=== PATIENT | male | born 1970 | race Caucasian/White ===

== ENCOUNTER 2017-12-23 10:37 | Inpatient (IN) | payer OTHER ==
[2017-12-23 11:08] VITALS: BMI 35.3
--- NOTE | 2017-12-23 12:28 | HP ---
COWS - Scale Resting Pulse: 1= [place] 81-100 Sweatin=Flushed/Facial Moisture Restless Observation: 1= Difficult to Sit Still Pupil Size: 2= Moderately Dilated Bone or Joint Aches: 2= Severe Diffuse Aches (Worse r/t withdrawal) Runny Nose/ Eye Tearin= Nasal Congestion GI Upset > 30mins: 2= Nausea/Diarrhea Tremor Observation: 2= Slight Tremor Visible Yawning Observation: 0= None Anxiety or Irritability: 0= None Goose Flesh Skin: 0=Smooth Skin COWS Score: 13 Admission [facility] Chief Complaint: Here for heroin withdrawal and to enter detox. Allergies/Adverse Reactions: Allergies Allergy/AdvReac Type Severity Reaction Status Date / Time No Known Allergies Allergy Verified 12/23/17 11:04 History of Present Illness: Started using heroin about 4 months ago. Dibbed and dabbed in custodial but when got out started for and was unable to control use. Drinks about 2 beers 4 x / week. Denies other illicit substance use. Recent prescription for oxycodone for management of post (R) knee arthroscopic surgery in November. States has completed all pain medication. You have not added a ADITYA number. Keeping your ADITYA number(s) up to date on the My ADITYA Numbers page will enable the separation of your prescriptions from others ' in the search results. Others' Prescriptions Patient Name: Ismael Velarde Date: 1970 Address: [address] [place] [address] Sex: Male Rx Written Rx Dispensed Drug Quantity Days Supply Prescriber Name 11/18/2017 11/19/2017 oxycodone-acetaminophen 5-325 mg tab 40 5 Chaka Maynard MD Patient Name: Ismael Velarde Date: 1970 Address: [address] [place] [address] Sex: Male Rx Written Rx Dispensed Drug Quantity Days Supply Prescriber Name 06/21/2017 06/21/2017 tramadol hcl 50 mg tablet 20 5 Scott Julio V () 03/25/2017 04/20/2017 dextroamp-amphet er 5 mg cap 30 30 Dahiana Momin MD 03/06/2017 03/21/2017 dextroamp-amphet er 5 mg cap 30 30 Dahiana Momin MD 02/07/2017 02/11/2017 dextroamp-amphet er 5 mg cap 30 30 Dahiana Momin MD Hx. asthma. last exacerbation in summer 1 year ago. Denies other significant health problems. States here to stop heroin use before it becomes a bigger problem. Discussed ther relationship of prescription opiates and need to discuss heroin use disorder with primary care providers to avoid relapse and overdose risk post hospitalization. - Ebola screening Have you traveled outside of the country in the last 21 days: No Have you had contact with anyone from an Ebola affected area: No Have you been sick,other than usual withdrawal symptoms: No Do you have a fever: No - Review of Systems EENT: reports: Blurred Vision (Wears glasses), Nose Congestion (r/t withdrawal) Respiratory: reports: Other (hx. asthma. No recent exacerbation. Uses albuterol for wheezing) Cardiac: reports: No Symptoms Reported GI: reports: Nausea, Indigestion (Hx. acid reflux. Was taking omeprazole. Now using TUMS.) : reports: No Symptoms Reported Musculoskeletal: reports: Joint Pain (Hx. (L) knee pain - 1 month post arthroscopic surgery. Pain is achy and a "3" at this time. Uses a cane for support.) Integumentary: reports: No Symptoms Reported Neuro: reports: Tremors, Unsteady Gait (r/t (L) knee problems) Endocrine: reports: No Symptoms Reported Hematology: reports: No Symptoms Reported Psychiatric: reports: Agitated (r/t withdrawal), Anxious (r/t withdrawal), Depressed (Denies suicide or violent ideation.), other (States hx. bipolar disorder. No medication treatment) Patient History - Patient Medical History Hx Asthma: Yes (ON ALBUTEROL PUMP) Hx Chronic Obstructive Pulmonary Disease (COPD): No Hx Cancer: No Hx Cardiac Disorders: No Hx Congestive Heart Failure: No Hx Hypertension: No Hx Hypercholesterolemia: No Hx Pacemaker: No HX Cerebrovascular Accident: No Hx Seizures: No Hx Dementia: No Hx Diabetes: No Hx Gastrointestinal Disorders: No Hx Liver Disease: No Hx Genitourinary Disorders: No Hx Sexually Transmitted Disorders: No Hx Renal Disease (ESRD): No Hx Thyroid Disease: No Hx Human Immunodeficiency Virus (HIV): No (Last tested 3 months ago. ) Hx Hepatitis C: No Hx Depression: Yes (States r/t incarceration. Denies suicide or violent ideation. ) Hx Suicide Attempt: No Hx Bipolar Disorder: Yes (States diagnosed but not on medications. ) Hx Schizophrenia: No - Patient Surgical History Past Surgical History: Yes Hx Neurologic Surgery: No Hx Cataract Extraction: No Hx Cardiac Surgery: No Hx Lung Surgery: No Hx Breast Surgery: No Hx Breast Biopsy: No Hx Abdominal Surgery: No Hx Appendectomy: No Hx Cholecystectomy: No Hx Genitourinary Surgery: No Hx Section: No Hx Orthopedic Surgery: Yes (LEFT KNEE Arthroscopy NOVEMBER 2017) Anesthesia Reaction: No - PPD History Previous Implant?: Yes Documented Results: Negative w/o proof Implanted On Prior [facility] Admission?: No PPD to be Administered?: Yes - Smoking Cessation Smoking history: Former smoker Have you smoked in the past 12 months: No Hx Chewing Tobacco Use: No Initiated information on smoking cessation: No - Substance & Tx. History Hx Alcohol Use: No Hx Substance Use: Yes Substance Use Type: Heroin Hx Substance Use Treatment: No - Substances Abused Heroin Route: Inhalation Frequency: Daily Amount used: 4 BAGS DAILY Age of first use: 47 Date of Last Use: 12/23/17 (7 am ) Admission Physical Exam S - Vital Signs Vital Signs: Vital Signs - 24 hr 12/23/17 11:05 Temperature 97.9 F Pulse Rate 87 Respiratory 20 Rate Blood Pressure 110/75 - Physical General Appearance: Yes: Mild Distress, Tremorous, Irritable, Sweating, Anxious HEENTM: Yes: EOMI, Hearing grossly Normal, Normal Voice, NIKKY Respiratory: Yes: Chest Non-Tender, Lungs Clear, Normal Breath Sounds, No Respiratory Distress Neck: Yes: No masses,lesions,Nodules, Supple Breast: Yes: Breast Exam Deferred Cardiology: Yes: Regular Rhythm, Regular Rate, S1, S2 Abdominal: Yes: Non Tender, Soft, Increased Bowel Sounds Genitourinary: Yes: Within Normal Limits Back: Yes: Normal Inspection Musculoskeletal: Yes: Joint swelling ((L) lnee with mild swelling. FROM. Two 1cm incision lines (L) knee dry and approximated.) Extremities: Yes: Normal Capillary Refill, Normal Range of Motion, Non-Tender, Tremors (Upon arm extension), Pedal Edema (Mild edema (R) foot. Cap refill < 3 seconds. Pedal pulses (+)) Neurological: Yes: shelter monitor II-XII NML intact, Alert, Motor Strength 5/5 Integumentary: Yes: Normal Color, Warm Lymphatic: Yes: Within Normal Limits - Diagnostic (1) Opiate withdrawal Current Visit: Yes Status: Acute (2) H/O arthroscopy of left knee Current Visit: Yes Status: Chronic (3) Depression Current Visit: Yes Status: Chronic Qualifiers: Depression Type: unspecified Qualified Code(s): F32.9 - Major depressive disorder, single episode, unspecified Cleared for Admission [facility] - Detox or Rehab [facility] Level of Care: Medically Managed Detox Regimen/Protocol: Methadone [facility] Breath Alcohol Content Breath Alcohol Content: 0 Urine Drug Screen - Results Drug Screen Negative: No Urine Drug Screen Results: OPI-Opiates, OXY-Oxycodone
[2017-12-23] MEDS ORDERED: guaiFENesin/D-METHORPHAN HB 10 ML UNIT-DOSE CUPS PO PRN (12:57)
[2017-12-23] MEDS ORDERED: MAG HYDROX/AL HYDROX/SIMETH 30 ML UNIT-DOSE CUP PO PRN (12:57)
[2017-12-23] MEDS ORDERED: ACETAMINOPHEN 325 MG TABLET (FP) PO PRN (12:57)
[2017-12-23] MEDS ORDERED: MAGNESIUM CITRATE 300 ML BOTTLE PO PRN (12:57)
[2017-12-23] MEDS ORDERED: LOPERAMIDE HCL 2 MG CAPSULE PO PRN (12:57)
[2017-12-23] MEDS ORDERED: hydrOXYzine PAMOATE 50 MG CAPSULE (FP) PO PRN (12:57)
[2017-12-23] MEDS ORDERED: MAGNESIUM HYDROX 2400MG/30ML ORAL SUSPENSION 30 ML CUP PO PRN (12:57)
[2017-12-23] MEDS ORDERED: MENTHOL/PHENOL 1 EACH UD MM PRN (12:57)
[2017-12-23] MEDS ORDERED: P-EPHED 60MG/TRIPROLIDI 2.5MG TABLET PO PRN (12:57)
[2017-12-23] MEDS ORDERED: METHADONE HCL 10 MG TABLET (FOR DETOX USE ONLY) PO ONE ×2 (14:15→23:00)
[2017-12-23] MEDS: diazePAM 5 MG TABLET PO PRN ×2 (15:06→22:20)
--- NOTE | 2017-12-23 15:44 | CONSULT ---
[facility] Psychiatric Consult - Data Date of interview: 12/23/17 Admission source: [facility] Identifying data: This is 47 years old male, single father of one, living with family, service parts coordinator working, ambulates with cane, with no psychiatric hospitalization history, reports Opioid dependence and seeking for detox. Substance Abuse History: - Smoking Cessation. Smoking history: Former smoker. Have you smoked in the past 12 months: No. Hx Chewing Tobacco Use: No. Initiated information on smoking cessation: No. - Substance & Tx. History. Hx Alcohol Use: No. Hx Substance Use: Yes. Substance Use Type: Heroin. Hx Substance Use Treatment: No. - Substances Abused. Heroin. Route: Inhalation. Frequency: Daily. Amount used: 4 BAGS DAILY. Age of first use: 47. Date of Last Use: 12/23/17 (7 am ) Medical History: Left Knee Injury, ambulates with cane Psychiatric History: Patient denies past psychiatric history Physical/Sexual Abuse/Trauma History: Denies Additional Comment: Observation. Detox Unit Care. Mental Status Exam - Mental Status Exam Alert and Oriented to: Person Cognitive Function: Fair Patient Appearance: Unkempt Mood: Anxious Affect: Mood Congruent Patient Behavior: Cooperative Speech Pattern: Delayed Voice Loudness: Mildly Soft/Quiet Thought Process: Circumstantial, Goal Oriented Thought Disorder: Being Controlled Hallucinations: Denies Suicidal Ideation: Denies Homicidal Ideation: Denies Insight/Judgement: Fair Sleep: Difficulty falling asleep Muscle strength/Tone: Mild Hypotonicity Additional Comments: Observation. Detox Unit Care. Psychiatric Findings - Problem List ([place] 1, 2,3) (1) Opioid-induced mood disorder Current Visit: Yes Status: Acute (2) Opiate withdrawal Current Visit: Yes Status: Acute - Initial Treatment Plan Initial Treatment Plan: Observation. Detox Unit Care.
[2017-12-23 17:52] LABS: URINE APPEARANCE TURBID; URINE BILIRUBIN NEGATIVE (<2.0 mg/dL); URINE COLOR AMBER; URINE GLUCOSE (UA) NEGATIVE (NEGATIVE); URINE KETONE NEGATIVE (NEGATIVE); URINE LEUK ESTERASE NEGATIVE (NEGATIVE); URINE NITRITE NEGATIVE (NEGATIVE); URINE PROTEIN NEGATIVE (NEGATIVE)
[2017-12-23] MEDS ORDERED: MELATONIN 5 MG TABLETS PO PRN (22:00)
[2017-12-23] MEDS: THIAMINE HCL 100 MG TABLET (FP) PO SCH (22:20)
[2017-12-24] MEDS ORDERED: METHADONE HCL 10 MG TABLET (FOR DETOX USE ONLY) PO ONE (10:00)
[2017-12-24 10:10] LABS: MCH 30.7 pg (25.7-33.7); MCHC 34.2 g/dl (32.0-35.9); MEAN PLT VOLUME 9.9 fl (7.5-11.1); PLATELET COUNT 183 K/MM3 (134-434); RBC 4.56 M/mm3 (4.00-5.60); RDW 13.2 % (11.9-15.9)
[2017-12-24 10:17] LABS: CHLORIDE 102 mmol/L (98-107); POTASSIUM 4.4 mmol/L (3.5-5.1); SODIUM 140 mmol/L (136-145)
[2017-12-24] MEDS: PRENATAL VITAMINS W/ FOLIC ACID TABLET (FP) PO SCH (10:24)
[2017-12-24] MEDS: diazePAM 5 MG TABLET PO PRN ×2 (10:25→22:14)
--- NOTE | 2017-12-24 10:38 | PN ---
[facility] COWS - Scale Resting Pulse: 1= [place] 81-100 Sweatin= Chills/Flushing Restless Observation: 1= Difficult to Sit Still Pupil Size: 1= Pupils >than Normal Bone or Joint Aches: 2= Severe Diffuse Aches Runny Nose/ Eye Tearin= Nasal Congestion GI Upset > 30mins: 1= Stomach Cramp Tremor Observation of Outstretched Hands: 1= Tremor [place], Not Seen Yawning Observation: 1= 1-2x During Session Anxiety or Irritability: 2=Irritable/Anxious Goose Flesh Skin: 0=Smooth Skin COWS Score: 12 [facility] Progress Note (SOAP) Subjective: joint pain body aches sweat mild tremor trouble sleep at night Objective: 12/24/17 10:38 Vital Signs Temperature 98.1 F 12/24/17 09:09 Pulse Rate 93 H 12/24/17 09:09 Respiratory Rate 18 12/24/17 09:09 Blood Pressure 118/64 12/24/17 09:09 O2 Sat by Pulse Oximetry (%) Laboratory Last Values WBC 7.0 K/mm3 (4.0-10.0) 12/24/17 07:00 RBC 4.56 M/mm3 (4.00-5.60) 12/24/17 07:00 Hgb 14.0 GM/dL (11.7-16.9) 12/24/17 07:00 Hct 41.0 % (35.4-49) 12/24/17 07:00 MCV 90.0 fl (80-96) 12/24/17 07:00 MCH 30.7 pg (25.7-33.7) 12/24/17 07:00 MCHC 34.2 g/dl (32.0-35.9) 12/24/17 07:00 RDW 13.2 % (11.9-15.9) 12/24/17 07:00 Plt Count 183 K/MM3 (134-434) 12/24/17 07:00 MPV 9.9 fl (7.5-11.1) 12/24/17 07:00 Sodium 140 mmol/L (136-145) 12/24/17 07:00 Potassium 4.4 mmol/L (3.5-5.1) 12/24/17 07:00 Chloride 102 mmol/L (98-107) 12/24/17 07:00 Urine Color Ann 12/23/17 17:00 Urine Appearance Turbid 12/23/17 17:00 Urine pH 5.0 (5.0-8.0) 12/23/17 17:00 Ur Specific [place] 1.027 (1.001-1.035) 12/23/17 17:00 Urine Protein Negative (NEGATIVE) 12/23/17 17:00 Urine Glucose (UA) Negative (NEGATIVE) 12/23/17 17:00 Urine Ketones Negative (NEGATIVE) 12/23/17 17:00 Urine Blood Negative (NEGATIVE) 12/23/17 17:00 Urine Nitrite Negative (NEGATIVE) 12/23/17 17:00 Urine Bilirubin Negative (<2.0 mg/dL) 12/23/17 17:00 Urine Urobilinogen 2.0 mg/dL (0.2-1.0) 12/23/17 17:00 Ur Leukocyte Esterase Negative (NEGATIVE) 12/23/17 17:00 lab noted Assessment: 12/24/17 10:41 withdrawal sx Plan: continue detox
[2017-12-24 11:07] LABS: ALBUMIN 3.2 g/dl (3.4-5.0); ALK PHOS 82 U/L (45-117); ANION GAP 9 (8-16); BILIRUBIN,TOTAL 0.5 mg/dL (0.2-1.0); BLOOD UREA NITROGEN 13 mg/dL (7-18); CALCIUM 8.5 mg/dL (8.5-10.1); CO2 29 mmol/L (21-32); CREATININE 0.7 mg/dL (0.7-1.3); GLUCOSE,RANDOM 94 mg/dL (74-106); SGOT/AST 21 U/L (15-37); SGPT/ALT 38 U/L (12-78); TOT PROT 6.4 g/dl (6.4-8.2)
--- NOTE | 2017-12-24 14:19 | EKG ---
Test Reason : Blood Pressure : / mmHG Vent. Rate : 063 BPM Atrial Rate : 063 BPM P-R Int : 162 ms QRS Dur : 098 ms QT Int : 374 ms P-R-T Axes : 034 056 017 degrees QTc Int : 382 ms NORMAL SINUS RHYTHM INCOMPLETE RIGHT BUNDLE BRANCH BLOCK BORDERLINE ECG NO PREVIOUS ECGS AVAILABLE Confirmed by MD Concepcion, Erasmo ([id number]) on 12/24/2017 2:19:39 PM Referred By: Confirmed By:Erasmo Javier MD
[2017-12-24] MEDS: ARTIFICIAL TEARS (POLYVINYL ALCOHOL 1.4%) OPTH DROPS OS SCH ×3 (15:00→22:15)
[2017-12-24] MEDS: THIAMINE HCL 100 MG TABLET (FP) PO SCH (22:14)
--- NOTE | 2017-12-25 09:58 | PN ---
[facility] COWS - Scale Resting Pulse: 1= [place] 81-100 Sweatin= Chills/Flushing Restless Observation: 1= Difficult to Sit Still Pupil Size: 1= Pupils >than Normal Bone or Joint Aches: 2= Severe Diffuse Aches Runny Nose/ Eye Tearin= Nasal Congestion GI Upset > 30mins: 1= Stomach Cramp Tremor Observation of Outstretched Hands: 1= Tremor [place], Not Seen Yawning Observation: 0= None Anxiety or Irritability: 1=Feels Anxious/Irritable Goose Flesh Skin: 0=Smooth Skin COWS Score: 10 [facility] Progress Note (SOAP) Subjective: interrupted sleep, lbp, left knee pain , OS stye better than yesterday Objective: 12/25/17 09:57 Vital Signs Temperature 97 F L 12/25/17 09:14 Pulse Rate 86 12/25/17 09:14 Respiratory Rate 18 12/25/17 09:14 Blood Pressure 116/55 12/25/17 09:14 O2 Sat by Pulse Oximetry (%) Laboratory Tests 12/23/17 12/23/17 12/24/17 07:00 17:00 07:00 WBC 7.0 RBC 4.56 Hgb 14.0 Hct 41.0 MCV 90.0 MCH 30.7 MCHC 34.2 RDW 13.2 Plt Count 183 MPV 9.9 Sodium Potassium Chloride Carbon Dioxide Anion Gap BUN Creatinine Creat Clearance w eGFR Random Glucose Calcium Total Bilirubin AST ALT Alkaline Phosphatase Total Protein Albumin Urine Color Ann Urine Appearance Turbid Urine pH 5.0 Ur Specific [place] 1.027 Urine Protein Negative Urine Glucose (UA) Negative Urine Ketones Negative Urine Blood Negative Urine Nitrite Negative Urine Bilirubin Negative Urine Urobilinogen 2.0 Ur Leukocyte Esterase Negative RPR Titer HIV 1&2 Antibody Screen Negative HIV P24 Antigen Negative 12/24/17 12/24/17 07:00 07:00 WBC RBC Hgb Hct MCV MCH MCHC RDW Plt Count MPV Sodium 140 Potassium 4.4 Chloride 102 Carbon Dioxide 29 Anion Gap 9 BUN 13 Creatinine 0.7 Creat Clearance w eGFR > 60 Random Glucose 94 Calcium 8.5 Total Bilirubin 0.5 AST 21 ALT 38 Alkaline Phosphatase 82 Total Protein 6.4 Albumin 3.2 L Urine Color Urine Appearance Urine pH Ur Specific [place] Urine Protein Urine Glucose (UA) Urine Ketones Urine Blood Urine Nitrite Urine Bilirubin Urine Urobilinogen Ur Leukocyte Esterase RPR Titer Nonreactive HIV 1&2 Antibody Screen HIV P24 Antigen 12/25/17 10:01 pt lying in bed aox3 in nad OS swelling with stye left knee lrom pt ambulates with a cane 12/25/17 10:02 Assessment: 12/25/17 10:03 withdrawal sx's os stye s/p left knee athroscopy Plan: cont. detox increase fluids erythromycin eye oint warm compresses to os motrin prn
[2017-12-25] MEDS ORDERED: METHADONE HCL 5 MG TABLET (FOR DETOX USE ONLY) PO ONE (10:00)
[2017-12-25] MEDS: ARTIFICIAL TEARS (POLYVINYL ALCOHOL 1.4%) OPTH DROPS OS SCH ×4 (10:09→22:22)
[2017-12-25] MEDS: PRENATAL VITAMINS W/ FOLIC ACID TABLET (FP) PO SCH (10:09)
[2017-12-25] MEDS: diazePAM 5 MG TABLET PO PRN ×3 (10:09→22:21)
[2017-12-25] MEDS: IBUPROFEN 400 MG TABLET (FP) PO PRN ×2 (10:12→22:24)
[2017-12-25] MEDS ORDERED: ERYTHROMYCIN 0.5% OPHTHALMIC OINTMENT 3.5 GM TUBE OS ONE (10:18)
[2017-12-25] MEDS: THIAMINE HCL 100 MG TABLET (FP) PO SCH (22:21)
[2017-12-26] MEDS: diazePAM 5 MG TABLET PO PRN ×2 (05:44→11:02)
[2017-12-26] MEDS ORDERED: METHADONE HCL 5 MG TABLET (FOR DETOX USE ONLY) PO ONE (10:00)
[2017-12-26] MEDS ORDERED: ERYTHROMYCIN 0.5% OPHTHALMIC OINTMENT 3.5 GM TUBE OS SCH (10:00)
[2017-12-26] MEDS: ARTIFICIAL TEARS (POLYVINYL ALCOHOL 1.4%) OPTH DROPS OS SCH ×2 (11:02→13:58)
[2017-12-26] MEDS: PRENATAL VITAMINS W/ FOLIC ACID TABLET (FP) PO SCH (11:02)
[2017-12-26] MEDS: IBUPROFEN 400 MG TABLET (FP) PO PRN (11:04)
[2017-12-26] MEDS ORDERED: CLOTRIMAZOLE 1% CREAM 15 GM TUBE TP SCH (11:15)
--- NOTE | 2017-12-26 11:45 | PN ---
[facility] Progress Note Note: PATIENT IN DETOX FOR HEROIN WITHDRAWAL SYMPTOMS. STATES HE FEELS WELL. DENIES ANY MEDICAL COMPLAINTS TODAY. Laboratory Tests 12/23/17 12/23/17 12/24/17 07:00 17:00 07:00 WBC 7.0 RBC 4.56 Hgb 14.0 Hct 41.0 MCV 90.0 MCH 30.7 MCHC 34.2 RDW 13.2 Plt Count 183 MPV 9.9 Sodium Potassium Chloride Carbon Dioxide Anion Gap BUN Creatinine Creat Clearance w eGFR Random Glucose Calcium Total Bilirubin AST ALT Alkaline Phosphatase Total Protein Albumin Urine Color [place] Urine Appearance Turbid Urine pH 5.0 Ur Specific [place] 1.027 Urine Protein Negative Urine Glucose (UA) Negative Urine Ketones Negative Urine Blood Negative Urine Nitrite Negative Urine Bilirubin Negative Urine Urobilinogen 2.0 Ur Leukocyte Esterase Negative RPR Titer HIV 1&2 Antibody Screen Negative HIV P24 Antigen Negative 12/24/17 12/24/17 07:00 07:00 WBC RBC Hgb Hct MCV MCH MCHC RDW Plt Count MPV Sodium 140 Potassium 4.4 Chloride 102 Carbon Dioxide 29 Anion Gap 9 BUN 13 Creatinine 0.7 Creat Clearance w eGFR > 60 Random Glucose 94 Calcium 8.5 Total Bilirubin 0.5 AST 21 ALT 38 Alkaline Phosphatase 82 Total Protein 6.4 Albumin 3.2 L Urine Color Urine Appearance Urine pH Ur Specific [place] Urine Protein Urine Glucose (UA) Urine Ketones Urine Blood Urine Nitrite Urine Bilirubin Urine Urobilinogen Ur Leukocyte Esterase RPR Titer Nonreactive HIV 1&2 Antibody Screen HIV P24 Antigen Vital Signs Temperature 97.5 F L 12/26/17 10:03 Pulse Rate 72 12/26/17 10:03 Respiratory Rate 18 12/26/17 10:03 Blood Pressure 122/66 12/26/17 10:03 O2 Sat by Pulse Oximetry (%) OBJ: GENERAL: ALERT AND ORIENTED X 3. IN NAD SKIN: WARM AND DRY CAR: S1S2 RESP: CTA BL A/P: WITHDRAWAL SYNDROME CONTINUE ORAL FLUIDS AND DETOX CONTINUE TO MONITOR CLINICALLY
[2017-12-26 13:15] VITALS: BP 130/81; PULSE 91; TEMP 98.1
--- NOTE | 2017-12-26 14:39 | DS ---
[facility] Detox Discharge Summary Admission Date: 12/23/17 - Physical Exam Results Vital Signs: Vital Signs Temperature 98.1 F 12/26/17 13:13 Pulse Rate 91 H 12/26/17 13:13 Respiratory Rate 18 12/26/17 13:13 Blood Pressure 130/81 12/26/17 13:13 O2 Sat by Pulse Oximetry (%) - Medication Discharge Medications: Ambulatory Orders Albuterol Sulfate Inhaler - [Ventolin HFA Inhaler -] 2 inh PO Q4H PRN #1 inhaler 12/25/17 - Diagnosis (1) Withdrawal syndrome Current Visit: Yes Status: Acute - AMA Did Patient Leave Against Medical Advice: Yes (PATIENT STATED HE HAD TO LEAVE DUE TO FAMILY EMERGENCY. )
--- NOTE | 2017-12-26 14:41 | PN ---
[facility] Progress Note Note: PATIENT STATES HE HAD TO LEAVE AMA DUE TO FAMILY EMERGENCY. MEDICALLY STABLE. DENIES SI/HI. PATIENT EDUCATED REGARDING RISK FACTORS OF RELAPSE WITH SIGNING OUT AMA. PATIENT REFUSED TO STAY. PATIENT ENCOURAGED TO ATTEND GROUP MEETINGS TO PREVENT RELAPSE.
[2017-12-27] MEDS ORDERED: METHADONE HCL 10 MG TABLET (FOR DETOX USE ONLY) PO ONE (10:00)
[2017-12-28] MEDS ORDERED: METHADONE HCL 5 MG TABLET (FOR DETOX USE ONLY) PO ONE (06:00)
== END 2017-12-26 14:24 | disposition left against medical advice (07) | DRG 770 ==
LOC: YASAS 10:37 → Y6N 14:08
PROVIDERS: ADMIT Family Medicine Addiction Medicine; ATTEND Family Medicine Addiction Medicine
PROC: HZ2ZZZZ Detoxification Services for Substance Abuse Treatment (ICD-10-PCS; principal; 2017-12-23)
DX: F11.23 Opioid dependence with withdrawal (principal); F19.24 Other psychoactive substance dependence with psychoactive substance-induced mood disorder; F31.9 Bipolar disorder, unspecified; F32.9 Major depressive disorder, single episode, unspecified; J45.909 Unspecified asthma, uncomplicated; H00.16 Chalazion left eye, unspecified eyelid; Z98.890 Other specified postprocedural states
CPT/HCPCS: 36415; 80053; 81003; 85027; 86593; 87389; 93005; 93010

== ENCOUNTER 2018-05-08 15:40 | Inpatient (IN) | payer OTHER ==
[2018-05-08 16:34] VITALS: BMI 32.5
--- NOTE | 2018-05-08 20:56 | HP ---
COWS - Scale Resting Pulse: 1= [place] 81-100 Sweatin=Flushed/Facial Moisture Restless Observation: 0= Sits Still Pupil Size: 0= Normal to Room Light Bone or Joint Aches: 4=Acute Joint/Muscle Pain Runny Nose/ Eye Tearin= Runny Nose/Eyes GI Upset > 30mins: 1= Stomach Cramp Tremor Observation: 4= Gross Tremor/Twitching Yawning Observation: 1= 1-2x During Session Anxiety or Irritability: 2=Irritable/Anxious Goose Flesh Skin: 0=Smooth Skin COWS Score: 17 CIWA Score - CIWA Score Nausea/Vomitin Muscle Tremors: 4-Moderate,w/Arms Extend Anxiety: 3 Agitation: 3 Paroxysmal Sweats: 1-Minimal Palms Moist Orientation: 0-Oriented Tacttile Disturbances: 0-None Auditory Disturbances: 0-None Visual Disturbances: 2-Mild Sensitivity Headache: 2-Mild CIWA-Ar Total Score: 17 Admission ROS S - HPI Chief Complaint: Alcohol and heroin withdrawal symptoms Allergies/Adverse Reactions: Allergies Allergy/AdvReac Type Severity Reaction Status Date / Time No Known Allergies Allergy Verified 05/08/18 19:45 History of Present Illness: 48 years old female with history of alcohol and heroin dependence is seeking admission to detox. Patient reports that he was incarcerated for 20 years and started using drugs and alcohol about 9 months ago. He reports insignificant period of sobriety. He has medical history of asthma, GERD, anemia, arthritis of the knee, depression and anxiety. He denies suicidal ideation at this time. Patient reports that he is on methadone maintenance therapy at [facility]. LDM was today, 05/08/2018. Dose is to be verified by the nurse. Exam Limitations: No Limitations - Ebola screening Have you traveled outside of the country in the last 21 days: No Have you had contact with anyone from an Ebola affected area: No Have you been sick,other than usual withdrawal symptoms: No Do you have a fever: No - Review of Systems Constitutional: Chills, Loss of Appetite, Malaise, Changes in sleep EENT: reports: Other (use prescription eye glasses) Respiratory: reports: No Symptoms reported Cardiac: reports: No Symptoms Reported GI: reports: Constipated, Poor Appetite, Poor Fluid Intake, Abdominal cramping : reports: No Symptoms Reported Musculoskeletal: reports: Back Pain, Joint Pain, Muscle Pain Integumentary: reports: Dryness Neuro: reports: Headache, Numbness (hands), Tremors Endocrine: reports: No Symptoms Reported Hematology: reports: No Symptoms Reported Psychiatric: reports: Mood/Affect Appropiate, Orientated x3, Anxious, Depressed Other Systems: Reviewed and Negative Patient History - Patient Medical History Hx Anemia: Yes (Not on medication) Hx Asthma: Yes (Albuterol) Hx Chronic Obstructive Pulmonary Disease (COPD): No Hx Cancer: No Hx Cardiac Disorders: No Hx Congestive Heart Failure: No Hx Hypertension: No Hx Hypercholesterolemia: No Hx Pacemaker: No HX Cerebrovascular Accident: No Hx Seizures: No Hx Dementia: No Hx Diabetes: No Hx Gastrointestinal Disorders: Yes (GERD - Not on medication) Hx Liver Disease: No Hx Genitourinary Disorders: No Hx Sexually Transmitted Disorders: No Hx Renal Disease (ESRD): No Hx Thyroid Disease: No Hx Human Immunodeficiency Virus (HIV): No (Last tested 3 months ago. ) Hx Hepatitis C: No Hx Depression: Yes (States r/t incarceration. Denies suicide or violent ideation. ) Hx Suicide Attempt: No (Denies suicidal ideation at this time) Hx Bipolar Disorder: Yes (States diagnosed but not on medications. ) Hx Schizophrenia: No Other Medical History: Anxiety, Arthritis of the knees - Not on medication - Patient Surgical History Past Surgical History: Yes Hx Neurologic Surgery: No Hx Cataract Extraction: No Hx Cardiac Surgery: No Hx Lung Surgery: No Hx Breast Surgery: No Hx Breast Biopsy: No Hx Abdominal Surgery: No Hx Appendectomy: No Hx Cholecystectomy: No Hx Genitourinary Surgery: No Hx Section: No Hx Orthopedic Surgery: Yes (LEFT KNEE Arthroscopy NOVEMBER 2017) Anesthesia Reaction: No - PPD History Previous Implant?: Yes Documented Results: Negative w/proof Implanted On Prior [facility] Admission?: Yes Date: 12/25/17 PPD to be Administered?: No - Reproductive History Patient is a Female of Child Bearing Age (11 -55 yrs old): No (Male) - Smoking Cessation Smoking history: Former smoker Have you smoked in the past 12 months: No Hx Chewing Tobacco Use: No Initiated information on smoking cessation: No - Substance & Tx. History Hx Alcohol Use: Yes Hx Substance Use: Yes Substance Use Type: Alcohol, Heroin Hx Substance Use Treatment: Yes ([facility]) - Substances Abused Alcohol Route: Oral Frequency: Daily Amount used: $30 liquor, 2 x 6 pack beer Age of first use: 48 Date of Last Use: 05/08/18 Heroin Route: Injection Frequency: Daily Amount used: 1 GRAM Age of first use: 48 Date of Last Use: 05/08/18 Benzodiazepine (Klonopin) Route: Oral Frequency: Daily Amount used: 2/2MG Age of first use: 48 Date of Last Use: 05/08/18 Family Disease History - Family Disease History Family History: Denies Admission Physical Exam [facility] - Vital Signs Vital Signs: Vital Signs - 24 hr 05/08/18 16:31 Temperature 98.7 F Pulse Rate 90 Respiratory 18 Rate Blood Pressure 142/73 - Physical General Appearance: Yes: Moderate Distress, Tremorous, Irritable, Anxious HEENTM: Yes: EOMI, Normal ENT Inspection, Normocephalic, Normal Voice, NIKKY Respiratory: Yes: Lungs Clear, Normal Breath Sounds, No Respiratory Distress Neck: Yes: Supple Breast: Yes: Breast Exam Deferred Cardiology: Yes: Tachycardia Abdominal: Yes: Normal Bowel Sounds Genitourinary: Yes: Within Normal Limits Back: Yes: Normal Inspection Musculoskeletal: Yes: Back pain, Muscle Pain, Muscle weakness Extremities: Yes: Tremors Neurological: Yes: Alert, Normal Mood/Affect Integumentary: Yes: Warm Lymphatic: Yes: Within Normal Limits - Diagnostic (1) Alcohol dependence with uncomplicated withdrawal Current Visit: Yes Status: Chronic (2) Opioid dependence with withdrawal Current Visit: Yes Status: Chronic (3) Asthma Current Visit: Yes Status: Chronic Qualifiers: Asthma complication type: unspecified (4) Anemia Current Visit: Yes Status: Chronic Qualifiers: Anemia type: unspecified type Qualified Code(s): D64.9 - Anemia, unspecified (5) Anxiety Current Visit: Yes Status: Chronic (6) Arthritis of knee Current Visit: Yes Status: Chronic (7) Depression Current Visit: Yes Status: Chronic Qualifiers: Depression Type: unspecified Qualified Code(s): F32.9 - Major depressive disorder, single episode, unspecified Cleared for Admission [facility] - Detox or Rehab [facility] Level of Care: Medically Managed Detox Regimen/Protocol: Librium [facility] Breath Alcohol Content Breath Alcohol Content: 0 Urine Drug Screen - Results Drug Screen Negative: No Urine Drug Screen Results: OPI-Opiates, MTD-Methadone, FEN-Fentanyl
[2018-05-08] MEDS ORDERED: MAGNESIUM HYDROX 2400MG/30ML ORAL SUSPENSION 30 ML CUP PO PRN (21:16)
[2018-05-08] MEDS ORDERED: LOPERAMIDE HCL 2 MG CAPSULE PO PRN (21:16)
[2018-05-08] MEDS ORDERED: P-EPHED 60MG/TRIPROLIDI 2.5MG TABLET PO PRN (21:16)
[2018-05-08] MEDS ORDERED: chlordiazePOXIDE HCL 25 MG CAPSULE PO PRN (21:16)
[2018-05-08] MEDS ORDERED: MAGNESIUM CITRATE 300 ML BOTTLE PO PRN (21:16)
[2018-05-08] MEDS ORDERED: MENTHOL/PHENOL 1 EACH UD MM PRN (21:16)
[2018-05-08] MEDS ORDERED: guaiFENesin/D-METHORPHAN HB 10 ML UNIT-DOSE CUPS PO PRN (21:16)
[2018-05-08] MEDS: THIAMINE HCL 100 MG TABLET (FP) PO SCH (21:46)
[2018-05-08] MEDS: chlordiazePOXIDE HCL 25 MG CAPSULE PO SCH (22:18)
[2018-05-08 23:54] LABS: URINE APPEARANCE CLEAR; URINE BILIRUBIN NEGATIVE (<2.0 mg/dL); URINE COLOR YELLOW; URINE GLUCOSE (UA) NEGATIVE (NEGATIVE); URINE KETONE NEGATIVE (NEGATIVE); URINE LEUK ESTERASE NEGATIVE (NEGATIVE); URINE NITRITE NEGATIVE (NEGATIVE); URINE PROTEIN NEGATIVE (NEGATIVE); URINE UROBILINOGEN NEGATIVE mg/dL (0.2-1.0)
[2018-05-09] MEDS: chlordiazePOXIDE HCL 25 MG CAPSULE PO SCH ×4 (05:28→22:04)
[2018-05-09] MEDS ORDERED: METHADONE HCL 40 MG DISPERSABLE TABLET PO ONE (09:30)
[2018-05-09] MEDS: PRENATAL VITAMINS W/ FOLIC ACID TABLET (FP) PO SCH (09:41)
[2018-05-09] MEDS: ACETAMINOPHEN 325 MG TABLET (FP) PO PRN (09:42)
[2018-05-09 10:44] LABS: ALBUMIN 3.5 g/dl (3.4-5.0); ALK PHOS 79 U/L (45-117); ANION GAP 10 MMOL/L (8-16); BILIRUBIN,TOTAL 0.4 mg/dL (0.2-1); BLOOD UREA NITROGEN 18 mg/dL (7-18); CALCIUM 8.5 mg/dL (8.5-10.1); CHLORIDE 104 mmol/L (98-107); CO2 27 mmol/L (21-32); CREATININE 0.8 mg/dL (0.55-1.3); GLUCOSE,RANDOM 92 mg/dL (74-106); POTASSIUM 4.1 mmol/L (3.5-5.1); SGOT/AST 14 U/L (15-37); SGPT/ALT 25 U/L (13-61); SODIUM 141 mmol/L (136-145); TOT PROT 6.5 g/dl (6.4-8.2)
[2018-05-09 10:49] LABS: MEAN PLT VOLUME 9.9 fl (7.5-11.1); RDW 13.9 % (11.9-15.9)
[2018-05-09 10:53] LABS: HEMATOCRIT 41.4 % (35.4-49); HEMOGLOBIN 13.7 GM/dL (11.7-16.9); MCHC 33.1 g/dl (32.0-35.9); MEAN CELL VOLUME 90.5 fl (80-96); PLATELET COUNT 216 K/MM3 (134-434); RBC 4.58 M/mm3 (4.00-5.60); WHITE BLOOD COUNT 6.8 K/mm3 (4.0-10.0)
--- NOTE | 2018-05-09 11:36 | EKG ---
Test Reason : Blood Pressure : / mmHG Vent. Rate : 065 BPM Atrial Rate : 065 BPM P-R Int : 152 ms QRS Dur : 106 ms QT Int : 402 ms P-R-T Axes : 042 040 035 degrees QTc Int : 418 ms NORMAL SINUS RHYTHM NORMAL ECG WHEN COMPARED WITH ECG OF 23-DEC-2017 14:44, INCOMPLETE RIGHT BUNDLE BRANCH BLOCK IS NO LONGER PRESENT Confirmed by EZE CAUSEY MD ([id number]) on 05/09/2018 11:36:16 AM Referred By: Confirmed By:EZE CAUSEY MD
--- NOTE | 2018-05-09 11:50 | PN ---
S CIWA - CIWA Score Nausea/Vomitin Muscle Tremors: 4-Moderate,w/Arms Extend Anxiety: 4-Mod. Anxious/Guarded Agitation: 4-Moderately Restless Paroxysmal Sweats: 3 Orientation: 0-Oriented Tacttile Disturbances: 0-None Auditory Disturbances: 0-None Visual Disturbances: 0-None Headache: 0-None Present CIWA-Ar Total Score: 17 BHS COWS - Scale Resting Pulse: 1= AR 81-100 Sweatin= Chills/Flushing Restless Observation: 3= Extraneous Movement Pupil Size: 0= Normal to Room Light Bone or Joint Aches: 2= Severe Diffuse Aches Runny Nose/ Eye Tearin= Runny Nose/Eyes GI Upset > 30mins: 3= Vomiting/Diarrhea Tremor Observation of Outstretched Hands: 2= Slight Tremor Visible Yawning Observation: 0= None Anxiety or Irritability: 2=Irritable/Anxious Goose Flesh Skin: 0=Smooth Skin COWS Score: 16 BHS Progress Note (SOAP) Subjective: Bone pain, tremor, chills, sweating, interrupted sleep Objective: 05/09/18 11:47 Last Vital Signs Temp Pulse Resp BP Pulse Ox 97.0 F L 86 20 125/78 05/09/18 09:35 05/09/18 09:35 05/09/18 09:35 05/09/18 09:35 Laboratory Tests 05/08/18 05/09/18 05/09/18 21:36 07:30 07:30 WBC 6.8 RBC 4.58 Hgb 13.7 Hct 41.4 MCV 90.5 MCH 30.0 MCHC 33.1 RDW 13.9 Plt Count 216 MPV 9.9 Sodium 141 Potassium 4.1 Chloride 104 Carbon Dioxide 27 Anion Gap 10 BUN 18 Creatinine 0.8 Creat Clearance w eGFR > 60 Random Glucose 92 Calcium 8.5 Total Bilirubin 0.4 AST 14 L ALT 25 Alkaline Phosphatase 79 Total Protein 6.5 Albumin 3.5 Urine Color Yellow Urine Appearance Clear Urine pH 5.0 Ur Specific [place] 1.028 Urine Protein Negative Urine Glucose (UA) Negative Urine Ketones Negative Urine Blood Negative Urine Nitrite Negative Urine Bilirubin Negative Urine Urobilinogen Negative Ur Leukocyte Esterase Negative Labs reviewed Assessment: 05/09/18 11:48 Withdrawal symptoms Plan: Continue detox Encouraged PO water intake
--- NOTE | 2018-05-09 16:42 | CONSULT ---
[facility] Psychiatric Consult - Data Date of interview: 05/09/18 Admission source: [facility] Identifying data: Readmission to [facility] for this 48 y/o male seeking detoxification treatment on 3 for heroin, alcohol and benzodiazepine (clonazepam) dependence. Patient is single, a father of one, domiciled, unemployed and supported on Public Assistance. Substance Abuse History: Confirmed by the patient in this interview. details in current [facility] report : Smoking history: Former smoker. Have you smoked in the past 12 months: No. Hx Chewing Tobacco Use: No. Initiated information on smoking cessation: No. - Substance & Tx. History. Hx Alcohol Use: Yes. Hx Substance Use: Yes. Substance Use Type: Alcohol, Heroin. Hx Substance Use Treatment: Yes ([facility]). - Substances Abused. Alcohol. Route: Oral. Frequency: Daily. Amount used: $30 liquor, 2 x 6 pack beer. Age of first use: 48. Date of Last Use: 05/08/18. Heroin. Route: Injection. Frequency: Daily. Amount used: 1 GRAM. Age of first use: 48. Date of Last Use: . Benzodiazepine (Klonopin). Route: Oral. Frequency: Daily. Amount used : 2/2MG. Age of first use: 48. Date of Last Use: 05/08/18 Medical History: Arthritis of left knee, anemia, GERD, bronchial asthma and recent history of arthroscopic surgery (left knee). Psychiatric History: Patient endorses a history of multiple psychiatric hospitalizations during childhood + early adolescence ([facility]). Last hospitalized around age 14-15. Reportedly diagnosed with Bipolar Disorder. Used to be medicated with ritalin and haloperidol. Lost to psychiatric follow-up for many years until recent reconnection with OPD care ( saw a psychiatrist at a clinic in the [place] but dropped out two months ago, according to self report). Stopped taking prozac a month ago (dose not recalled) . Patient denies history of suicide attempts. Mr Velarde is currently on methadone maintenance (60 mg/day) at the [facility] in the [place]. Physical/Sexual Abuse/Trauma History: Patient reports an extensive history of incarceration (20 years in senior care). Reason not disclosed. Additional Comment: Urine Drug Screen Results: OPI-Opiates, MTD-Methadone, FEN- Fentanyl. Noted. Mental Status Exam - Mental Status Exam Alert and Oriented to: Time, Place, Person Cognitive Function: Good Patient Appearance: Well Groomed (short stature) Mood: Withdrawn, Apprehensive Affect: Appropriate, Normal Range Patient Behavior: Fatigued, Cooperative Speech Pattern: Clear, Appropriate Voice Loudness: Normal Thought Process: Intact, Goal Oriented Thought Disorder: Not Present Hallucinations: Denies Suicidal Ideation: Denies Homicidal Ideation: Denies Insight/Judgement: Poor Sleep: Well Appetite: Good Muscle strength/Tone: Normal Gait/Station: Normal Psychiatric Findings - Problem List ([place] 1, 2,3) (1) Alcohol dependence with uncomplicated withdrawal Current Visit: Yes Status: Acute (2) Opioid dependence with withdrawal Current Visit: Yes Status: Acute (3) Sedative, hypnotic or anxiolytic dependence with withdrawal, uncomplicated Current Visit: Yes Status: Acute (4) Substance induced mood disorder Current Visit: Yes Status: Acute - Initial Treatment Plan Initial Treatment Plan: Psychoeducation. Sleep hygiene. Detoxification in progress. AA/NA meetings recommended. Psychotherapy (individual, supportive, cognitive/behavioral). Patient is made aware of resources available for relapse prevention. Medication reconciliation : no psychotropic medication on file. Observation.
--- NOTE | 2018-05-09 17:17 | PN ---
BHS Progress Note Note: per nurse pt requesting bacitracin for nose- order
[2018-05-09] MEDS: THIAMINE HCL 100 MG TABLET (FP) PO SCH (22:04)
[2018-05-09] MEDS: BACITRACIN 0.9 GM PACKET TP SCH (22:04)
[2018-05-09] MEDS: MELATONIN 5 MG TABLETS PO PRN (22:04)
[2018-05-10] MEDS ORDERED: METHADONE HCL 40 MG DISPERSABLE TABLET ONE (04:53)
[2018-05-10] MEDS ORDERED: METHADONE HCL 10 MG TABLET ONE (04:53)
[2018-05-10] MEDS: chlordiazePOXIDE HCL 25 MG CAPSULE PO SCH ×3 (05:17→17:08)
[2018-05-10] MEDS ORDERED: METHADONE HCL 10 MG TABLET PO ONE (06:00)
[2018-05-10] MEDS ORDERED: METHADONE 40 MG, METHADONE 10 MG PO ONE (06:00)
[2018-05-10] MEDS: IBUPROFEN 400 MG TABLET (FP) PO PRN (07:34)
--- NOTE | 2018-05-10 10:18 | PN ---
S CIWA - CIWA Score Nausea/Vomitin-No Nausea/No Vomiting Muscle Tremors: 2 Anxiety: 3 Agitation: 3 Paroxysmal Sweats: 2 Orientation: 0-Oriented Tacttile Disturbances: 1-Very Mild Itch/Numbness Auditory Disturbances: 0-None Visual Disturbances: 0-None Headache: 0-None Present CIWA-Ar Total Score: 11 BHS COWS - Scale Resting Pulse: 1= MD 81-100 Sweatin= Chills/Flushing Restless Observation: 1= Difficult to Sit Still Pupil Size: 0= Normal to Room Light Bone or Joint Aches: 2= Severe Diffuse Aches Runny Nose/ Eye Tearin= Nasal Congestion GI Upset > 30mins: 0= None Tremor Observation of Outstretched Hands: 1= Tremor [place], Not Seen Yawning Observation: 1= 1-2x During Session Anxiety or Irritability: 2=Irritable/Anxious Goose Flesh Skin: 0=Smooth Skin COWS Score: 10 BHS Progress Note (SOAP) Subjective: c/o of feeling dizzy, fatigue, left hip pain, back pain, interrupted sleep patient requested to see psych re: anxiety and past hx of visual and auditory hallucinations, denies auditory or visual hallucinations. Objective: 05/10/18 10:17 Vital Signs Temperature 97.4 F L 05/10/18 09:17 Pulse Rate 97 H 05/10/18 09:17 Respiratory Rate 20 05/10/18 09:17 Blood Pressure 112/78 05/10/18 09:17 O2 Sat by Pulse Oximetry (%) Laboratory Last Values WBC 6.8 K/mm3 (4.0-10.0) 05/09/18 07:30 RBC 4.58 M/mm3 (4.00-5.60) 05/09/18 07:30 Hgb 13.7 GM/dL (11.7-16.9) 05/09/18 07:30 Hct 41.4 % (35.4-49) 05/09/18 07:30 MCV 90.5 fl (80-96) 05/09/18 07:30 MCH 30.0 pg (25.7-33.7) 05/09/18 07:30 MCHC 33.1 g/dl (32.0-35.9) 05/09/18 07:30 RDW 13.9 % (11.9-15.9) 05/09/18 07:30 Plt Count 216 K/MM3 (134-434) 05/09/18 07:30 MPV 9.9 fl (7.5-11.1) 05/09/18 07:30 Sodium 141 mmol/L (136-145) 05/09/18 07:30 Potassium 4.1 mmol/L (3.5-5.1) 05/09/18 07:30 Chloride 104 mmol/L (98-107) 05/09/18 07:30 Carbon Dioxide 27 mmol/L (21-32) 05/09/18 07:30 Anion Gap 10 MMOL/L (8-16) 05/09/18 07:30 BUN 18 mg/dL (7-18) 05/09/18 07:30 Creatinine 0.8 mg/dL (0.55-1.3) 05/09/18 07:30 Creat Clearance w eGFR > 60 (>60) 05/09/18 07:30 Random Glucose 92 mg/dL (74-106) 05/09/18 07:30 Calcium 8.5 mg/dL (8.5-10.1) 05/09/18 07:30 Total Bilirubin 0.4 mg/dL (0.2-1) 05/09/18 07:30 AST 14 U/L (15-37) L 05/09/18 07:30 ALT 25 U/L (13-61) 05/09/18 07:30 Alkaline Phosphatase 79 U/L (45-117) 05/09/18 07:30 Total Protein 6.5 g/dl (6.4-8.2) 05/09/18 07:30 Albumin 3.5 g/dl (3.4-5.0) 05/09/18 07:30 Urine Color Yellow 05/08/18 21:36 Urine Appearance Clear 05/08/18 21:36 Urine pH 5.0 (5.0-8.0) 05/08/18 21:36 Ur Specific [place] 1.028 (1.010-1.035) 05/08/18 21:36 Urine Protein Negative (NEGATIVE) 05/08/18 21:36 Urine Glucose (UA) Negative (NEGATIVE) 05/08/18 21:36 Urine Ketones Negative (NEGATIVE) 05/08/18 21:36 Urine Blood Negative (NEGATIVE) 05/08/18 21:36 Urine Nitrite Negative (NEGATIVE) 05/08/18 21:36 Urine Bilirubin Negative (<2.0 mg/dL) 05/08/18 21:36 Urine Urobilinogen Negative mg/dL (0.2-1.0) 05/08/18 21:36 Ur Leukocyte Esterase Negative (NEGATIVE) 05/08/18 21:36 RPR Titer Nonreactive (NONREACTIVE) 05/09/18 07:30 Assessment: 05/10/18 12:52 withdrawal sx Plan: increase po fluids psych consults continue detox continue to monitor
[2018-05-10] MEDS: BACITRACIN 0.9 GM PACKET TP SCH ×2 (10:26→22:13)
[2018-05-10] MEDS: PRENATAL VITAMINS W/ FOLIC ACID TABLET (FP) PO SCH (10:26)
[2018-05-10] MEDS: METHYL SALICYLATE/MENTHOL OINT 30 GM TUBE TP SCH (11:55)
[2018-05-10] MEDS: chlordiazePOXIDE 5 MG CAPSULE PO SCH (22:12)
[2018-05-10] MEDS: THIAMINE HCL 100 MG TABLET (FP) PO SCH (22:12)
[2018-05-10] MEDS: ACETAMINOPHEN 325 MG TABLET (FP) PO PRN (22:13)
[2018-05-10] MEDS: MELATONIN 5 MG TABLETS PO PRN (22:14)
[2018-05-11] MEDS ORDERED: hydrOXYzine PAMOATE 50 MG CAPSULE (FP) ONE (03:42)
[2018-05-11] MEDS ORDERED: METHADONE HCL 10 MG TABLET ONE (04:01)
[2018-05-11] MEDS ORDERED: METHADONE HCL 40 MG DISPERSABLE TABLET ONE (04:01)
[2018-05-11] MEDS: chlordiazePOXIDE 5 MG CAPSULE PO SCH ×3 (05:48→17:28)
[2018-05-11] MEDS ORDERED: METHADONE HCL 10 MG TABLET PO ONE (06:00)
[2018-05-11] MEDS ORDERED: METHADONE 40 MG, METHADONE 20 MG PO ONE (06:00)
[2018-05-11] MEDS: IBUPROFEN 400 MG TABLET (FP) PO PRN (08:26)
[2018-05-11] MEDS: ALBUTEROL SO4 8 GM HFA INHALER IH PRN (09:01)
[2018-05-11] MEDS ORDERED: BISACODYL 5 MG TABLET.DR (FP) PO ONE (09:58)
[2018-05-11] MEDS: PRENATAL VITAMINS W/ FOLIC ACID TABLET (FP) PO SCH (10:24)
[2018-05-11] MEDS: METHYL SALICYLATE/MENTHOL OINT 30 GM TUBE TP SCH (10:24)
[2018-05-11] MEDS: BACITRACIN 0.9 GM PACKET TP SCH ×2 (10:24→22:01)
[2018-05-11] MEDS ORDERED: ALBUTEROL SO4 0.083% IH SOL 2.5 MG/3 ML VIAL.NEB. NEB PRN (11:28)
--- NOTE | 2018-05-11 16:03 | PN ---
S Progress Note (SOAP) Subjective: Anxious, sweating, tremor, chills, constipation Objective: 05/11/18 16:03 Last Vital Signs Temp Pulse Resp BP Pulse Ox 97.2 F L 75 18 101/61 05/11/18 14:00 05/11/18 14:00 05/11/18 14:00 05/11/18 14:00 Laboratory Tests 05/08/18 05/09/18 05/09/18 21:36 07:30 07:30 WBC 6.8 RBC 4.58 Hgb 13.7 Hct 41.4 MCV 90.5 MCH 30.0 MCHC 33.1 RDW 13.9 Plt Count 216 MPV 9.9 Sodium 141 Potassium 4.1 Chloride 104 Carbon Dioxide 27 Anion Gap 10 BUN 18 Creatinine 0.8 Creat Clearance w eGFR > 60 Random Glucose 92 Calcium 8.5 Total Bilirubin 0.4 AST 14 L ALT 25 Alkaline Phosphatase 79 Total Protein 6.5 Albumin 3.5 Urine Color Yellow Urine Appearance Clear Urine pH 5.0 Ur Specific [place] 1.028 Urine Protein Negative Urine Glucose (UA) Negative Urine Ketones Negative Urine Blood Negative Urine Nitrite Negative Urine Bilirubin Negative Urine Urobilinogen Negative Ur Leukocyte Esterase Negative RPR Titer 05/09/18 07:30 WBC RBC Hgb Hct MCV MCH MCHC RDW Plt Count MPV Sodium Potassium Chloride Carbon Dioxide Anion Gap BUN Creatinine Creat Clearance w eGFR Random Glucose Calcium Total Bilirubin AST ALT Alkaline Phosphatase Total Protein Albumin Urine Color Urine Appearance Urine pH Ur Specific [place] Urine Protein Urine Glucose (UA) Urine Ketones Urine Blood Urine Nitrite Urine Bilirubin Urine Urobilinogen Ur Leukocyte Esterase RPR Titer Nonreactive Labs reviewed Assessment: 05/11/18 16:04 Withdrawal symptoms Plan: Continue detox Encouraged PO water intake
[2018-05-11] MEDS ORDERED: BISACODYL 5 MG TABLET.DR (FP) ONE (17:13)
[2018-05-11] MEDS: MAG HYDROX/AL HYDROX/SIMETH 30 ML UNIT-DOSE CUP PO PRN (20:00)
[2018-05-11] MEDS: THIAMINE HCL 100 MG TABLET (FP) PO SCH (22:01)
[2018-05-11] MEDS: chlordiazePOXIDE HCL 10 MG CAPSULE PO SCH (22:01)
[2018-05-11] MEDS: MELATONIN 5 MG TABLETS PO PRN (22:01)
[2018-05-11] MEDS ORDERED: ONDANSETRON *ODT* 4 MG TABLET SL PRN (23:59)
[2018-05-12] MEDS ORDERED: METHADONE HCL 40 MG DISPERSABLE TABLET ONE (04:51)
[2018-05-12] MEDS ORDERED: METHADONE HCL 10 MG TABLET ONE (04:52)
[2018-05-12] MEDS: chlordiazePOXIDE HCL 10 MG CAPSULE PO SCH (05:24)
[2018-05-12] MEDS: MAG HYDROX/AL HYDROX/SIMETH 30 ML UNIT-DOSE CUP PO PRN (05:26)
[2018-05-12] MEDS: ALBUTEROL SO4 8 GM HFA INHALER IH PRN (05:30)
[2018-05-12] MEDS ORDERED: METHADONE 40 MG, METHADONE 30 MG PO ONE (06:00)
[2018-05-12] MEDS ORDERED: METHADONE HCL 10 MG TABLET PO SCH (06:00)
[2018-05-12 06:13] VITALS: BP 106/64; PULSE 90; TEMP 98
--- NOTE | 2018-05-12 12:51 | DS ---
[facility] Detox Discharge Summary Admission Date: 05/08/18 Discharge Date: 05/12/18 - History Additional Comments: Pt for discharge today, pt completed detox Pt had left unit prior to arrival of this provider. - Physical Exam Results Vital Signs: Vital Signs Temperature 98 F 05/12/18 06:12 Pulse Rate 90 05/12/18 06:12 Respiratory Rate 18 05/12/18 06:12 Blood Pressure 106/64 05/12/18 06:12 O2 Sat by Pulse Oximetry (%) - Medication Discharge Medications: Ambulatory Orders Albuterol Sulfate Inhaler - [Ventolin HFA Inhaler -] 2 inh PO Q4H PRN #1 inhaler 12/25/17 - Diagnosis (1) Alcohol dependence with uncomplicated withdrawal Status: Acute (2) Anxiety Status: Acute (3) Chalazion of left eye Status: Acute (4) Opioid dependence with withdrawal Status: Acute (5) Sedative, hypnotic or anxiolytic dependence with withdrawal, uncomplicated Status: Acute (6) Withdrawal syndrome Status: Acute (7) Anemia Status: Chronic Qualifiers: Anemia type: unspecified type Qualified Code(s): D64.9 - Anemia, unspecified (8) Asthma Status: Chronic Qualifiers: Asthma complication type: unspecified (9) Depression Status: Chronic Qualifiers: Depression Type: unspecified Qualified Code(s): F32.9 - Major depressive disorder, single episode, unspecified (10) GERD (gastroesophageal reflux disease) Status: Chronic - AMA Did Patient Leave Against Medical Advice: No
== END 2018-05-12 09:04 | disposition home or self-care (01) | DRG 773 ==
LOC: YASAS 15:40 → Y3N 19:43
PROC: HZ2ZZZZ Detoxification Services for Substance Abuse Treatment (ICD-10-PCS; principal; 2018-05-08)
DX: F11.23 Opioid dependence with withdrawal (principal); F10.230 Alcohol dependence with withdrawal, uncomplicated; F13.230 Sedative, hypnotic or anxiolytic dependence with withdrawal, uncomplicated; F41.9 Anxiety disorder, unspecified; F32.9 Major depressive disorder, single episode, unspecified; F19.24 Other psychoactive substance dependence with psychoactive substance-induced mood disorder; F31.9 Bipolar disorder, unspecified; H00.16 Chalazion left eye, unspecified eyelid; D64.9 Anemia, unspecified; J45.909 Unspecified asthma, uncomplicated; K21.9 Gastro-esophageal reflux disease without esophagitis; M13.862 Other specified arthritis, left knee; R00.0 Tachycardia, unspecified; Z87.891 Personal history of nicotine dependence
CPT/HCPCS: 36415; 80053; 81003; 85027; 86593; 93005; 93010; Q0162

== ENCOUNTER 2021-05-01 18:31 | Inpatient (IN) | payer OTHER ==
[2021-05-01 19:37] VITALS: BMI 37.2
[2021-05-01] MEDS ORDERED: NALOXONE (NARCAN) HCL 4 MG/0.1 ML SPRAY NS PRN (20:16)
[2021-05-01] MEDS ORDERED: P-EPHED 60MG/TRIPROLIDI 2.5MG TABLET PO PRN (20:16)
[2021-05-01] MEDS ORDERED: MAGNESIUM CITRATE 300 ML BOTTLE PO PRN (20:16)
[2021-05-01] MEDS ORDERED: MAGNESIUM HYDROX 2400MG/30ML ORAL SUSPENSION 30 ML CUP PO PRN (20:16)
[2021-05-01] MEDS ORDERED: MAG HYDROX/AL HYDROX/SIMETH 30 ML UNIT-DOSE CUP PO PRN (20:16)
[2021-05-01] MEDS ORDERED: LOPERAMIDE HCL 2 MG CAPSULE PO PRN (20:16)
[2021-05-01] MEDS ORDERED: guaiFENesin 200 MG/10 ML 10 ML UNIT-DOSE CUPS PO PRN (20:16)
[2021-05-01] MEDS ORDERED: NICOTINE POLACRILEX 2 MG GUM BC PRN (20:16)
[2021-05-02] MEDS ORDERED: TUBERCULIN PPD 5 TU/0.1ML VIAL ID ONE (02:04)
[2021-05-02] MEDS: ACETAMINOPHEN 325 MG TABLET (FP) PO PRN (02:09)
[2021-05-02] MEDS: THIAMINE HCL 100 MG TABLET (FP) PO SCH ×2 (02:20→22:07)
[2021-05-02] MEDS: MELATONIN 5 MG TABLETS PO SCH ×2 (02:20→22:07)
[2021-05-02] MEDS: METHYL SALICYLATE/MENTHOL OINT 30 GM TUBE TP SCH ×3 (02:20→22:05)
[2021-05-02] MEDS: PRENATAL VITAMINS W/ FOLIC ACID TABLET (FP) PO SCH (09:40)
[2021-05-02] MEDS: NICOTINE 7 MG/24 HOURS TOPICAL PATCH TD SCH (09:40)
[2021-05-02] MEDS: IBUPROFEN 400 MG TABLET (FP) PO PRN ×2 (09:41→22:08)
[2021-05-02 10:08] LABS: HEMATOCRIT 40.1 % (35.4-49); HEMOGLOBIN 13.5 GM/dL (11.7-16.9); MCH 30.4 pg (25.7-33.7); MCHC 33.6 g/dl (32.0-35.9); MEAN CELL VOLUME 90.4 fl (80-96); MEAN PLT VOLUME 9.6 fl (7.5-11.1); PLATELET COUNT 192 10^3/uL (134-434); RBC 4.44 M/mm3 (4.00-5.60); RDW 14.1 % (11.9-15.9); WHITE BLOOD COUNT 6.6 K/mm3 (4.0-10.0)
[2021-05-02 10:09] LABS: BLOOD UREA NITROGEN 21.9 mg/dL (7-18); CALCIUM 8.9 mg/dL (8.5-10.1)
[2021-05-02 10:10] LABS: ALBUMIN 3.5 g/dl (3.4-5.0)
[2021-05-02 10:13] LABS: CREATININE 0.9 mg/dL (0.55-1.3)
[2021-05-02 10:14] LABS: BILIRUBIN,TOTAL 0.2 mg/dL (0.2-1); TOT PROT 6.7 g/dl (6.4-8.2)
[2021-05-02 15:26] LABS: URINE APPEARANCE CLOUDY; URINE BILIRUBIN NEGATIVE (NEGATIVE); URINE COLOR YELLOW; URINE GLUCOSE (UA) NEGATIVE (NEGATIVE); URINE KETONE NEGATIVE (NEGATIVE); URINE LEUK ESTERASE NEGATIVE (NEGATIVE); URINE NITRITE NEGATIVE (NEGATIVE); URINE PROTEIN NEGATIVE (NEGATIVE)
[2021-05-02] MEDS: hydrOXYzine PAMOATE 25 MG CAPSULE (FP) PO PRN (22:07)
[2021-05-03] MEDS: methaDONE HCL 10 MG TABLET PO SCH (09:02)
[2021-05-03] MEDS: PRENATAL VITAMINS W/ FOLIC ACID TABLET (FP) PO SCH (09:03)
[2021-05-03] MEDS: METHYL SALICYLATE/MENTHOL OINT 30 GM TUBE TP SCH ×2 (09:03→22:03)
[2021-05-03] MEDS: NICOTINE 7 MG/24 HOURS TOPICAL PATCH TD SCH (09:04)
[2021-05-03] MEDS: IBUPROFEN 400 MG TABLET (FP) PO PRN (09:04)
[2021-05-03] MEDS: ALBUTEROL SO4 HFA INHALER IH PRN (12:55)
[2021-05-03] MEDS: IBUPROFEN 600 MG TABLET (FP) PO PRN (18:53)
[2021-05-03] MEDS: THIAMINE HCL 100 MG TABLET (FP) PO SCH (22:03)
[2021-05-03] MEDS: QUEtiapine FUMARATE 50 MG TABLET PO SCH (22:03)
[2021-05-03] MEDS: MELATONIN 5 MG TABLETS PO SCH (22:03)
[2021-05-04] MEDS: methaDONE HCL 10 MG TABLET PO SCH (06:29)
[2021-05-04] MEDS: IBUPROFEN 600 MG TABLET (FP) PO PRN (09:37)
[2021-05-04] MEDS: PRENATAL VITAMINS W/ FOLIC ACID TABLET (FP) PO SCH (09:37)
[2021-05-04] MEDS: ESCITALOPRAM OXALATE 10 MG TABLET PO SCH (09:37)
[2021-05-04] MEDS: hydrOXYzine PAMOATE 25 MG CAPSULE (FP) PO PRN ×2 (09:38→21:04)
[2021-05-04] MEDS: ALBUTEROL SO4 HFA INHALER IH PRN (09:39)
[2021-05-04] MEDS: NICOTINE 7 MG/24 HOURS TOPICAL PATCH TD SCH (09:39)
[2021-05-04] MEDS: METHYL SALICYLATE/MENTHOL OINT 30 GM TUBE TP SCH ×2 (09:39→22:16)
[2021-05-04] MEDS: NAPROXEN 500 MG TABLET PO PRN (21:04)
[2021-05-04] MEDS: QUEtiapine FUMARATE 50 MG TABLET PO SCH (21:04)
[2021-05-04] MEDS: THIAMINE HCL 100 MG TABLET (FP) PO SCH (21:04)
[2021-05-04] MEDS: MELATONIN 5 MG TABLETS PO SCH (21:05)
[2021-05-05] MEDS: methaDONE HCL 10 MG TABLET PO SCH (06:17)
[2021-05-05] MEDS: ESCITALOPRAM OXALATE 10 MG TABLET PO SCH (09:42)
[2021-05-05] MEDS: METHYL SALICYLATE/MENTHOL OINT 30 GM TUBE TP SCH ×2 (09:42→21:54)
[2021-05-05] MEDS: PRENATAL VITAMINS W/ FOLIC ACID TABLET (FP) PO SCH (09:42)
[2021-05-05] MEDS: NICOTINE 7 MG/24 HOURS TOPICAL PATCH TD SCH (09:42)
[2021-05-05] MEDS: NAPROXEN 500 MG TABLET PO PRN ×2 (15:21→21:49)
[2021-05-05] MEDS: hydrOXYzine PAMOATE 25 MG CAPSULE (FP) PO PRN (15:21)
[2021-05-05] MEDS: MELATONIN 5 MG TABLETS PO SCH (21:49)
[2021-05-05] MEDS: QUEtiapine FUMARATE 50 MG TABLET PO SCH (21:49)
[2021-05-05] MEDS: THIAMINE HCL 100 MG TABLET (FP) PO SCH (21:49)
[2021-05-06] MEDS: methaDONE HCL 10 MG TABLET PO SCH (06:14)
[2021-05-06] MEDS: PRENATAL VITAMINS W/ FOLIC ACID TABLET (FP) PO SCH (09:33)
[2021-05-06] MEDS: ESCITALOPRAM OXALATE 10 MG TABLET PO SCH (09:33)
[2021-05-06] MEDS: NAPROXEN 500 MG TABLET PO PRN ×2 (09:33→21:14)
[2021-05-06] MEDS: METHYL SALICYLATE/MENTHOL OINT 30 GM TUBE TP SCH ×2 (09:33→21:13)
[2021-05-06] MEDS: ALBUTEROL SO4 HFA INHALER IH PRN (09:33)
[2021-05-06] MEDS: NICOTINE 7 MG/24 HOURS TOPICAL PATCH TD SCH (09:35)
[2021-05-06] MEDS ORDERED: NICOTINE 10 MG CARTRIDGE (INHALER) IH PRN (10:59)
[2021-05-06] MEDS: MELATONIN 5 MG TABLETS PO SCH (21:13)
[2021-05-06] MEDS: QUEtiapine FUMARATE 50 MG TABLET PO SCH (21:13)
[2021-05-06] MEDS: hydrOXYzine PAMOATE 25 MG CAPSULE (FP) PO PRN (21:14)
[2021-05-06] MEDS: THIAMINE HCL 100 MG TABLET (FP) PO SCH (21:14)
[2021-05-07] MEDS: methaDONE HCL 10 MG TABLET PO SCH (06:16)
[2021-05-07] MEDS: PRENATAL VITAMINS W/ FOLIC ACID TABLET (FP) PO SCH (11:54)
[2021-05-07] MEDS: NICOTINE 7 MG/24 HOURS TOPICAL PATCH TD SCH (11:54)
[2021-05-07] MEDS: ESCITALOPRAM OXALATE 10 MG TABLET PO SCH (11:54)
[2021-05-07] MEDS: METHYL SALICYLATE/MENTHOL OINT 30 GM TUBE TP SCH ×2 (11:54→21:45)
[2021-05-07] MEDS: NAPROXEN 500 MG TABLET PO PRN (17:19)
[2021-05-07] MEDS: MELATONIN 5 MG TABLETS PO SCH (21:45)
[2021-05-07] MEDS: THIAMINE HCL 100 MG TABLET (FP) PO SCH (21:45)
[2021-05-07] MEDS: hydrOXYzine PAMOATE 25 MG CAPSULE (FP) PO PRN (21:45)
[2021-05-07] MEDS: QUEtiapine FUMARATE 50 MG TABLET PO SCH (21:45)
[2021-05-07] MEDS: ACETAMINOPHEN 325 MG TABLET (FP) PO PRN (21:46)
[2021-05-08] MEDS: methaDONE HCL 10 MG TABLET PO SCH (06:04)
[2021-05-08] MEDS: ESCITALOPRAM OXALATE 10 MG TABLET PO SCH (09:55)
[2021-05-08] MEDS: PRENATAL VITAMINS W/ FOLIC ACID TABLET (FP) PO SCH (09:55)
[2021-05-08] MEDS: NICOTINE 7 MG/24 HOURS TOPICAL PATCH TD SCH (09:55)
[2021-05-08] MEDS: NAPROXEN 500 MG TABLET PO PRN ×2 (09:55→21:59)
[2021-05-08] MEDS: METHYL SALICYLATE/MENTHOL OINT 30 GM TUBE TP SCH ×2 (11:41→22:08)
[2021-05-08] MEDS: MELATONIN 5 MG TABLETS PO SCH (21:58)
[2021-05-08] MEDS: QUEtiapine FUMARATE 50 MG TABLET PO SCH (21:59)
[2021-05-08] MEDS: THIAMINE HCL 100 MG TABLET (FP) PO SCH (22:08)
[2021-05-09] MEDS: methaDONE HCL 10 MG TABLET PO SCH (06:08)
[2021-05-09] MEDS: ESCITALOPRAM OXALATE 10 MG TABLET PO SCH (09:29)
[2021-05-09] MEDS: PRENATAL VITAMINS W/ FOLIC ACID TABLET (FP) PO SCH (09:29)
[2021-05-09] MEDS: NAPROXEN 500 MG TABLET PO PRN (09:30)
[2021-05-09] MEDS: METHYL SALICYLATE/MENTHOL OINT 30 GM TUBE TP SCH ×2 (09:30→21:00)
[2021-05-09] MEDS: NICOTINE 7 MG/24 HOURS TOPICAL PATCH TD SCH (09:30)
[2021-05-09] MEDS: BACITRACIN 0.9 GM PACKET TP SCH ×2 (14:18→20:59)
[2021-05-09] MEDS: ALBUTEROL SO4 HFA INHALER IH PRN ×2 (15:39→23:57)
[2021-05-09 15:53] LABS: PH,URINE 7.5 (5.0-8.0); URINE APPEARANCE CLEAR; URINE BILIRUBIN NEGATIVE (NEGATIVE); URINE COLOR YELLOW; URINE GLUCOSE (UA) NEGATIVE (NEGATIVE); URINE KETONE NEGATIVE (NEGATIVE); URINE LEUK ESTERASE NEGATIVE (NEGATIVE); URINE NITRITE NEGATIVE (NEGATIVE); URINE PROTEIN NEGATIVE (NEGATIVE); URINE UROBILINOGEN 0.2 mg/dL (0.2-1.0)
[2021-05-09] MEDS: THIAMINE HCL 100 MG TABLET (FP) PO SCH (20:59)
[2021-05-09] MEDS: MELATONIN 5 MG TABLETS PO SCH (20:59)
[2021-05-09] MEDS: QUEtiapine FUMARATE 50 MG TABLET PO SCH (20:59)
[2021-05-10] MEDS: methaDONE HCL 10 MG TABLET PO SCH (06:12)
[2021-05-10] MEDS: BACITRACIN 0.9 GM PACKET TP SCH ×2 (09:40→21:06)
[2021-05-10] MEDS: ESCITALOPRAM OXALATE 10 MG TABLET PO SCH (09:40)
[2021-05-10] MEDS: ALBUTEROL SO4 HFA INHALER IH PRN (09:40)
[2021-05-10] MEDS: PRENATAL VITAMINS W/ FOLIC ACID TABLET (FP) PO SCH (09:41)
[2021-05-10] MEDS: METHYL SALICYLATE/MENTHOL OINT 30 GM TUBE TP SCH ×2 (09:41→21:07)
[2021-05-10] MEDS: NICOTINE 7 MG/24 HOURS TOPICAL PATCH TD SCH (09:41)
[2021-05-10] MEDS: NAPROXEN 500 MG TABLET PO PRN ×2 (09:42→21:06)
[2021-05-10] MEDS: BUDESONIDE/FORMETEROL FUMARATE 80/4.5 mcg INHALER IH SCH ×2 (11:49→21:06)
[2021-05-10] MEDS: TOLNAFTATE 1% CREAM 15 GM TUBE TP SCH ×2 (11:50→21:06)
[2021-05-10] MEDS: ONDANSETRON *ODT* 4 MG TABLET SL PRN (11:52)
[2021-05-10] MEDS: THIAMINE HCL 100 MG TABLET (FP) PO SCH (21:06)
[2021-05-10] MEDS: MELATONIN 5 MG TABLETS PO SCH (21:06)
[2021-05-10] MEDS: QUEtiapine FUMARATE 50 MG TABLET PO SCH (21:08)
[2021-05-11] MEDS: methaDONE HCL 10 MG TABLET PO SCH (06:03)
[2021-05-11] MEDS: BUDESONIDE/FORMETEROL FUMARATE 80/4.5 mcg INHALER IH SCH ×2 (09:43→21:16)
[2021-05-11] MEDS: ESCITALOPRAM OXALATE 10 MG TABLET PO SCH (09:43)
[2021-05-11] MEDS: PRENATAL VITAMINS W/ FOLIC ACID TABLET (FP) PO SCH (09:43)
[2021-05-11] MEDS: METHYL SALICYLATE/MENTHOL OINT 30 GM TUBE TP SCH ×2 (09:44→21:35)
[2021-05-11] MEDS: BACITRACIN 0.9 GM PACKET TP SCH ×2 (09:44→21:16)
[2021-05-11] MEDS: NICOTINE 7 MG/24 HOURS TOPICAL PATCH TD SCH (09:45)
[2021-05-11] MEDS: TOLNAFTATE 1% CREAM 15 GM TUBE TP SCH ×2 (09:46→21:17)
[2021-05-11] MEDS: NAPROXEN 500 MG TABLET PO PRN ×2 (09:48→21:16)
[2021-05-11] MEDS: QUEtiapine FUMARATE 50 MG TABLET PO SCH (21:16)
[2021-05-11] MEDS: MELATONIN 5 MG TABLETS PO SCH (21:18)
[2021-05-11] MEDS: THIAMINE HCL 100 MG TABLET (FP) PO SCH (21:19)
[2021-05-12] MEDS: methaDONE HCL 10 MG TABLET PO SCH (07:02)
[2021-05-12] MEDS: PRENATAL VITAMINS W/ FOLIC ACID TABLET (FP) PO SCH (09:47)
[2021-05-12] MEDS: ESCITALOPRAM OXALATE 10 MG TABLET PO SCH (09:48)
[2021-05-12] MEDS: BUDESONIDE/FORMETEROL FUMARATE 80/4.5 mcg INHALER IH SCH ×2 (09:48→21:13)
[2021-05-12] MEDS: NICOTINE 7 MG/24 HOURS TOPICAL PATCH TD SCH (09:48)
[2021-05-12] MEDS: BACITRACIN 0.9 GM PACKET TP SCH ×2 (09:48→21:13)
[2021-05-12] MEDS: METHYL SALICYLATE/MENTHOL OINT 30 GM TUBE TP SCH ×2 (09:49→21:49)
[2021-05-12] MEDS: TOLNAFTATE 1% CREAM 15 GM TUBE TP SCH ×2 (09:49→21:49)
[2021-05-12] MEDS: NAPROXEN 500 MG TABLET PO PRN ×2 (09:51→21:13)
[2021-05-12] MEDS: ACETAMINOPHEN 325 MG TABLET (FP) PO PRN (16:42)
[2021-05-12] MEDS: hydrOXYzine PAMOATE 25 MG CAPSULE (FP) PO PRN (21:13)
[2021-05-12] MEDS: QUEtiapine FUMARATE 50 MG TABLET PO SCH (21:13)
[2021-05-12] MEDS: THIAMINE HCL 100 MG TABLET (FP) PO SCH (21:13)
[2021-05-12] MEDS: MELATONIN 5 MG TABLETS PO SCH (21:13)
[2021-05-13] MEDS: methaDONE HCL 10 MG TABLET PO SCH (06:00)
[2021-05-13] MEDS: ONDANSETRON *ODT* 4 MG TABLET SL PRN (07:43)
[2021-05-13] MEDS: BACITRACIN 0.9 GM PACKET TP SCH ×2 (09:30→22:21)
[2021-05-13] MEDS: BUDESONIDE/FORMETEROL FUMARATE 80/4.5 mcg INHALER IH SCH ×2 (09:30→22:21)
[2021-05-13] MEDS: PRENATAL VITAMINS W/ FOLIC ACID TABLET (FP) PO SCH (09:30)
[2021-05-13] MEDS: METHYL SALICYLATE/MENTHOL OINT 30 GM TUBE TP SCH ×2 (09:31→22:21)
[2021-05-13] MEDS: ESCITALOPRAM OXALATE 10 MG TABLET PO SCH (09:31)
[2021-05-13] MEDS: NICOTINE 7 MG/24 HOURS TOPICAL PATCH TD SCH (09:34)
[2021-05-13] MEDS: TOLNAFTATE 1% CREAM 15 GM TUBE TP SCH ×2 (09:35→22:23)
[2021-05-13] MEDS: NAPROXEN 500 MG TABLET PO PRN ×2 (09:36→22:21)
[2021-05-13] MEDS: ACETAMINOPHEN 325 MG TABLET (FP) PO PRN (14:49)
[2021-05-13] MEDS: QUEtiapine FUMARATE 50 MG TABLET PO SCH (22:21)
[2021-05-13] MEDS: MELATONIN 5 MG TABLETS PO SCH (22:21)
[2021-05-13] MEDS: THIAMINE HCL 100 MG TABLET (FP) PO SCH (22:21)
[2021-05-14] MEDS: methaDONE HCL 10 MG TABLET PO SCH (06:27)
[2021-05-14] MEDS: ACETAMINOPHEN 325 MG TABLET (FP) PO PRN (07:13)
[2021-05-14] MEDS: BACITRACIN 0.9 GM PACKET TP SCH ×2 (09:41→21:08)
[2021-05-14] MEDS: BUDESONIDE/FORMETEROL FUMARATE 80/4.5 mcg INHALER IH SCH ×2 (09:41→21:08)
[2021-05-14] MEDS: PRENATAL VITAMINS W/ FOLIC ACID TABLET (FP) PO SCH (09:41)
[2021-05-14] MEDS: TOLNAFTATE 1% CREAM 15 GM TUBE TP SCH ×2 (09:42→21:11)
[2021-05-14] MEDS: METHYL SALICYLATE/MENTHOL OINT 30 GM TUBE TP SCH ×2 (09:42→21:09)
[2021-05-14] MEDS: NICOTINE 7 MG/24 HOURS TOPICAL PATCH TD SCH (09:43)
[2021-05-14] MEDS: ESCITALOPRAM OXALATE 10 MG TABLET PO SCH (09:43)
[2021-05-14] MEDS: NAPROXEN 500 MG TABLET PO PRN ×2 (09:44→21:08)
[2021-05-14] MEDS: THIAMINE HCL 100 MG TABLET (FP) PO SCH (21:08)
[2021-05-14] MEDS: QUEtiapine FUMARATE 50 MG TABLET PO SCH (21:08)
[2021-05-14] MEDS: MELATONIN 5 MG TABLETS PO SCH (21:09)
[2021-05-15] MEDS: methaDONE HCL 10 MG TABLET PO SCH (06:05)
[2021-05-15 06:57] VITALS: PULSE 67
[2021-05-15] MEDS: PRENATAL VITAMINS W/ FOLIC ACID TABLET (FP) PO SCH (09:13)
[2021-05-15] MEDS: BUDESONIDE/FORMETEROL FUMARATE 80/4.5 mcg INHALER IH SCH ×2 (09:13→22:07)
[2021-05-15] MEDS: NICOTINE 7 MG/24 HOURS TOPICAL PATCH TD SCH (09:14)
[2021-05-15] MEDS: ESCITALOPRAM OXALATE 10 MG TABLET PO SCH (09:14)
[2021-05-15] MEDS: BACITRACIN 0.9 GM PACKET TP SCH ×2 (09:14→21:57)
[2021-05-15] MEDS: TOLNAFTATE 1% CREAM 15 GM TUBE TP SCH ×2 (09:16→22:08)
[2021-05-15] MEDS: METHYL SALICYLATE/MENTHOL OINT 30 GM TUBE TP SCH ×2 (09:16→22:07)
[2021-05-15] MEDS ORDERED: SODIUM PHOSPHATE/NA BIPHOS 133 ML ENEMA RC ONE (12:32)
[2021-05-15] MEDS: NAPROXEN 500 MG TABLET PO PRN (16:01)
[2021-05-15] MEDS: QUEtiapine FUMARATE 50 MG TABLET PO SCH (21:57)
[2021-05-15] MEDS: MELATONIN 5 MG TABLETS PO SCH (21:57)
[2021-05-15] MEDS: hydrOXYzine PAMOATE 25 MG CAPSULE (FP) PO PRN (21:57)
[2021-05-15] MEDS: THIAMINE HCL 100 MG TABLET (FP) PO SCH (21:57)
[2021-05-15] MEDS: ACETAMINOPHEN 325 MG TABLET (FP) PO PRN (21:58)
[2021-05-16] MEDS: methaDONE HCL 10 MG TABLET PO SCH (06:13)
[2021-05-16 07:06] VITALS: BP 119/74; TEMP 97.4
[2021-05-16] MEDS: BACITRACIN 0.9 GM PACKET TP SCH (09:04)
[2021-05-16] MEDS: METHYL SALICYLATE/MENTHOL OINT 30 GM TUBE TP SCH (09:04)
[2021-05-16] MEDS: ESCITALOPRAM OXALATE 10 MG TABLET PO SCH (09:04)
[2021-05-16] MEDS: BUDESONIDE/FORMETEROL FUMARATE 80/4.5 mcg INHALER IH SCH (09:04)
[2021-05-16] MEDS: NICOTINE 7 MG/24 HOURS TOPICAL PATCH TD SCH (09:04)
[2021-05-16] MEDS: PRENATAL VITAMINS W/ FOLIC ACID TABLET (FP) PO SCH (09:05)
[2021-05-16] MEDS: TOLNAFTATE 1% CREAM 15 GM TUBE TP SCH (09:05)
== END 2021-05-16 09:30 | disposition home or self-care (01) | DRG 772 ==
LOC: YASAS 18:31 → Y5N 23:32
PROVIDERS: ADMIT Allergy & Immunology; ATTEND Allergy & Immunology
PROC: HZ42ZZZ Group Counseling for Substance Abuse Treatment, Cognitive-Behavioral (ICD-10-PCS; principal; 2021-05-01)
DX: F11.20 Opioid dependence, uncomplicated (principal); F16.20 Hallucinogen dependence, uncomplicated; F17.210 Nicotine dependence, cigarettes, uncomplicated; F39 Unspecified mood [affective] disorder; F32.A Depression, unspecified; F41.9 Anxiety disorder, unspecified; G56.01 Carpal tunnel syndrome, right upper limb; J45.909 Unspecified asthma, uncomplicated; K59.01 Slow transit constipation; M17.12 Unilateral primary osteoarthritis, left knee; R73.9 Hyperglycemia, unspecified; Z86.59 Personal history of other mental and behavioral disorders; Z99.89 Dependence on other enabling machines and devices; Z56.0 Unemployment, unspecified; Z59.00 Homelessness unspecified; Z96.21 Cochlear implant status
CPT/HCPCS: 36415; 80053; 81003; 82947; 82962; 85027; 86780; C9803; Q0162; U0003; U0005